=== PATIENT | female | born 1950 | race Caucasian/White ===

== ENCOUNTER 2022-12-19 09:55 | Outpatient (CLI) | payer MEDICARE, OTHER | END 2022-12-19 09:56 | disposition home or self-care (01) | LOC: CSHMAMMO 09:55 | PROVIDERS: ATTEND Internal Medicine | DX: Z12.31 Encounter for screening mammogram for malignant neoplasm of breast (principal) | CPT/HCPCS: 77063; 77067 ==

== ENCOUNTER 2024-03-01 11:15 | Outpatient (CLI) | payer MEDICARE, OTHER | END 2024-03-01 11:16 | disposition home or self-care (01) | LOC: CSHMAMMO 11:15 | PROVIDERS: ATTEND Internal Medicine | DX: Z78.0 Asymptomatic menopausal state (principal); M85.851 Other specified disorders of bone density and structure, right thigh; M85.852 Other specified disorders of bone density and structure, left thigh | CPT/HCPCS: 77080 ==